=== PATIENT | female | born 1980 | race Caucasian/White ===

== ENCOUNTER → 2020-03-31 11:28 | Outpatient (CLI) | payer OTHER, SELFPAY ==
[2020-03-31 12:55] LABS: Appearance Urine UA CLEAR; Bilirubin Urine UA NEGATIVE (NEGATIVE); Color Urine UA YELLOW; Glucose Urine UA NEGATIVE (Negative); Ketones Urine UA NEGATIVE (NEGATIVE); Leukocyte Esterase Urine UA NEGATIVE (NEGATIVE); Nitrite Urine UA NEGATIVE (Negative); Occult Blood Urine UA 1+ (Negative); Protein Urine UA NEGATIVE (Negative); Specific Gravity Urine UA 1.015 (1.000-1.035); Urobilinogen Urine UA 0.2 E.U./dL (0.2)
[2020-03-31 13:22] LABS: RBC Urine 0-1/HPF (0-5/HPF); Squamous Epithelial Cell Urine 1-5 /HPF (0-5/HPF); WBC Urine 5-10/HPF (0-5/HPF)
[2020-03-31 13:23] LABS: Amorphous Sediment Urine 1+; Bacteria Urine Few (2-10); Culture Indicated Urine Specimen Cultured; Mucus Urine 1+ (Negative)
== END ==
PROVIDERS: Family Provider Family Medicine; PCP Student in an Organized Health Care Education/Training Program; Referring Provider Student in an Organized Health Care Education/Training Program; Visit Provider Student in an Organized Health Care Education/Training Program
DX: R30.0 Dysuria (principal)
CPT/HCPCS: 81001; 87077; 87086; 87186

== ENCOUNTER → 2021-03-27 15:13 | Outpatient (CLI) | payer OTHER, SELFPAY ==
[2021-03-27 16:25] LABS: Blood Urea Nitrogen 13 mg/dL (7-17); Calcium 9.6 mg/dL (8.4-10.2); Carbon Dioxide 26 mmol/L (22-32); Chloride 105 mmol/L (98-107); Estimated Glomerular Filt Rate > 60.0 mL/min (>60); Glucose 108 mg/dL (70-100); HEMOLYSIS < 15 (0-50); Sodium 138 mmol/L (137-145)
== END ==
PROVIDERS: PCP Student in an Organized Health Care Education/Training Program; Referring Provider Student in an Organized Health Care Education/Training Program; Visit Provider Student in an Organized Health Care Education/Training Program
DX: Z79.1 Long term (current) use of non-steroidal anti-inflammatories (NSAID) (principal)
CPT/HCPCS: 36415; 80048

== ENCOUNTER → 2021-06-26 11:31 | Outpatient (CLI) | payer OTHER, SELFPAY ==
[2021-06-26 13:13] LABS: COVID19 -Nasal RAPID POSITIVE (Negative)
== END ==
PROVIDERS: PCP Student in an Organized Health Care Education/Training Program; Visit Provider Physician Assistant
DX: Z20.822 Contact with and (suspected) exposure to COVID-19 (principal); R09.81 Nasal congestion; R09.89 Other specified symptoms and signs involving the circulatory and respiratory systems
CPT/HCPCS: 87635

== ENCOUNTER → 2021-07-05 08:33 | Outpatient (CLI) | payer OTHER, SELFPAY ==
[2021-07-05 13:25] LABS: COVID19 -Nasal RAPID POSITIVE (Negative)
== END ==
PROVIDERS: PCP Student in an Organized Health Care Education/Training Program; Visit Provider Nurse Practitioner Family
DX: Z20.822 Contact with and (suspected) exposure to COVID-19 (principal); R09.81 Nasal congestion
CPT/HCPCS: 87635

== ENCOUNTER 2022-12-11 12:56 | Emergency (ER) | payer OTHER, MEDICAID, SELFPAY ==
[2022-12-11 13:30] VITALS: BP 181/106; PULSE 122; RESP 18; TEMP 36.9; O2SAT 99; BMI 57.6
[2022-12-11 14:22] VITALS: BP 133/77; PULSE 120; RESP 18; O2SAT 98
[2022-12-11 14:31] VITALS: PULSE 118; RESP 20; O2SAT 96
--- NOTE | 2022-12-11 14:41 | ED.DENTAL ---
HPI - Dental/Oral <Martha Griffith PA-C - Last Filed: 12/11/22 14:50> General Chief complaint: Dental/Oral Stated complaint: L sided pain, mouth pain Time Seen by Provider: 12/11/22 14:31 Source: patient Mode of arrival: Family Vehicle History of Present Illness HPI Narrative: 42-year-old female with past medical history hyperlipidemia, lumbar disc herniation presents to the ED with 7 days of left upper dental pain. Patient endorses a subjective fever last night, intermittent nausea from the pain. Patient denies chills, chest pain, shortness of breath, vomiting, dysphagia, odynophagia. Related Data Home Medications Medication Instructions Recorded Confirmed ibuprofen 200 mg tablet (Advil) 400 mg PO Q4-6H PRN 08/13/18 05/09/22 Previous Rx's Medication Instructions Recorded cyclobenzaprine 10 mg tablet 10 mg PO TID PRN muscle spasm #30 05/09/22 tabs gabapentin 300 mg capsule 300 mg PO TID PRN Neuropathy #120 05/09/22 caps hydrocodone 5 mg-acetaminophen 325 1 tab PO Q6H PRN pain #10 tabs 05/09/22 mg tablet clindamycin HCl 150 mg capsule 450 mg PO TID 14 days #126 caps 12/11/22 epinephrine 0.3 mg/0.3 mL 0.3 mg (0.3 mL) IM Q5-15M PRN 12/11/22 injection, auto-injector (EpiPen) anaphylaxis #2 ea oxycodone-acetaminophen 5 mg-325 1 tab PO Q8H PRN pain #10 tabs 12/11/22 mg tablet (Percocet) tramadol 50 mg tablet 50 mg PO Q8H PRN pain #10 tabs 12/11/22 Allergies Allergy/AdvReac Type Severity Reaction Status Date / Time sulfamethoxazole Allergy Severe swelling Verified 12/11/22 13:40 [From ] everywhere trimethoprim [From ] Allergy Severe swelling Verified 12/11/22 13:40 everywhere amoxicillin Allergy Mild RASH Verified 12/11/22 13:40 Penicillins [PENICILLINS] Allergy Unknown Verified 12/11/22 13:40 Review of Systems <Martha Griffith PA-C - Last Filed: 12/11/22 14:50> Review of Systems ROS Unobtainable: All systems reviewed & are unremarkable except as noted in HPI and below Constitutional Constitutional: Denies chills, Denies fatigue, Denies fever(s), Denies frequent falls, Denies lethargy and Denies weakness Eyes Eyes: Denies change in vision, Denies eye discharge, Denies irritation and Denies loss of vision ENT Ears, Nose, Mouth, and Throat: Denies change in voice, Reports dental pain, Denies dizziness, Denies neck pain, Denies sore throat and Denies throat swelling Cardiovascular Cardiovascular: Denies chest pain, Denies irregular heart rhythm, Denies lightheadedness, Denies palpitations, Denies dyspnea, Denies dyspnea on exertion and Denies orthopnea Respiratory Respiratory: Denies cough, Denies dyspnea, Denies dyspnea on exertion and Denies wheezing Gastrointestinal Gastrointestinal: Denies abdominal pain, Denies change in bowel habits, Denies diarrhea, Denies nausea and Denies vomiting Genitourinary Genitourinary: Denies hematuria, Denies flank pain, Denies urinary incontinence and Denies urinary urgency Musculoskeletal Musculoskeletal: Denies back pain, Denies muscle weakness, Denies neck pain, Denies numbness and Denies tingling Integumentary/Breasts Skin/Breast: Denies pruritus, Denies erythema, Denies rash and Denies wounds Neurologic Neurologic: Denies behavioral changes, Denies confusion, Denies dizziness, Denies frequent falls, Denies loss of vision, Denies numbness, Denies tingling and Denies weakness Psychiatric Psychiatric: Denies anxiety, Denies behavioral changes, Denies confusion, Denies depression, Denies homicidal ideation and Denies suicidal ideation Endocrine Endocrine: Denies fatigue, Denies flushing and Denies palpitations Hematologic/Lymphatic Hematologic/Lymphatic: Denies easy bruising Allergic/Immunologic Allergic/Immunologic: Denies urticaria, Denies throat swelling and Denies wheezing Patient History <Martha Griffith PA-C - Last Filed: 12/11/22 14:50> Medical History Chicken pox (~1991) COVID-19 Kidney stones (~2007) Ovarian cyst (~2005) Shingles (~2013) Spine disorder (~2013) Surgical History Anesthesia Status post tonsillectomy and adenoidectomy (~1991) Family History Grandfather Age: 85 Diabetes mellitus Grandfather Cancer Social History Smoking Status: Current every day smoker quit status: considering quitting alcohol intake: never substance use type: marijuana (occasionally) Smoking Status: Current every day smoker tobacco type: cigarettes Substance Use Type: does not use Exam <Martha Griffith PA-C - Last Filed: 12/11/22 14:50> Narrative Exam Narrative: Const General:?cooperative, healthy appearing and comfortable HENMO Head:?normal to inspection Ears:?hearing grossly normal bilaterally Nose:?external nose normal Face and sinus:?normal facial exam and sinuses nontender Mouth:?oral mucosae normal; tenderness to palpation of the gum region above left upper molar; no discharge Throat:?posterior oropharynx normal Eyes General:?appearance normal, both eyes and all related structures Neck Neck:?normal visual inspection and no lymphadenopathy noted Resp Effort & Inspection:?normal respiratory effort Auscultation:?clear to auscultation bilaterally Cardio Rate:?regular rate Rhythm:?regular rhythm Neuro General:?patient alert, patient awake and patient oriented x3 Initial Vital Signs Initial Vital Signs: Vital Signs Temperature 98.5 F 12/11/22 13:30 Pulse Rate 122 H 12/11/22 13:30 Respiratory Rate 18 12/11/22 13:30 Blood Pressure 181/106 H 12/11/22 13:30 Pulse Oximetry 99 12/11/22 13:30 Oxygen Delivery Method Room Air 12/11/22 13:30 <Kenia Nieves DO - Last Filed: 12/17/22 09:21> Initial Vital Signs Initial Vital Signs: Vital Signs Temperature 98.5 F 12/11/22 13:30 Pulse Rate 122 H 12/11/22 13:30 Respiratory Rate 18 12/11/22 13:30 Blood Pressure 181/106 H 12/11/22 13:30 Pulse Oximetry 99 12/11/22 13:30 Oxygen Delivery Method Room Air 12/11/22 13:30 Course <Martha Griffith PA-C - Last Filed: 12/11/22 14:50> Vital Signs Vital signs: Vital Signs - 8 hr 12/11/22 13:30 12/11/22 14:22 12/11/22 14:31 Temperature 98.5 F Pulse Rate 122 H 120 H 118 H Respiratory Rate 18 18 20 Blood Pressure 181/106 H 133/77 Pulse Oximetry 99 98 96 Oxygen Delivery Method Room Air Room Air Room Air 12/11/22 14:43 Temperature Pulse Rate 111 H Respiratory Rate 18 Blood Pressure Pulse Oximetry 96 Oxygen Delivery Method Room Air <Kenia Nieves DO - Last Filed: 12/17/22 09:21> Vital Signs Vital signs: Vital Signs - 8 hr 12/11/22 13:30 12/11/22 14:22 12/11/22 14:31 Temperature 98.5 F Pulse Rate 122 H 120 H 118 H Respiratory Rate 18 18 20 Blood Pressure 181/106 H 133/77 Pulse Oximetry 99 98 96 Oxygen Delivery Method Room Air Room Air Room Air 12/11/22 14:43 Temperature Pulse Rate 111 H Respiratory Rate 18 Blood Pressure Pulse Oximetry 96 Oxygen Delivery Method Room Air MDM - Dental/Oral <Martha Griffith PA-C - Last Filed: 12/11/22 14:50> MDM Narrative Medical decision making narrative: 42-year-old female with past medical history hyperlipidemia, lumbar disc herniation presents to the ED with 7 days of left upper dental pain. Concern for dental abscess versus cracked tooth versus loose dental filling versus other. Patient is very tender to palpation in the gum region right above the left upper molar. No discharge noted on exam. Will start patient on antibiotics, pain control. Recommend follow-up with dentist as soon as possible for further evaluation treatment. Patient has anaphylactic reactions to several antibiotics, so will also prescribe EpiPen in case of adverse reaction to the medications she is prescribed today. Patient is known to tolerate azithromycin, hence clindamycin was chosen. ED return precautions were discussed with patient. Patient verbalized understanding. Medical records reviewed: Yes Discharge Plan Departure Patient Disposition: Home Clinical Impression: Pain, dental Instructions: DI for Dental Pain Activity Restrictions/Additional Instructions: You were evaluated in the ED today for dental pain. Your dental pain could be caused by either a abscess or a cracked tooth. You are being prescribed antibiotics and pain medication until you are able to see a dentist. It is important to see a dentist as soon as possible for further evaluation and treatment. Given that you have had anaphylactic reactions to several antibiotics, you were also being prescribed a EpiPen to use in case of any anaphylactic reactions to medications. Return to the ED if you have an anaphylactic reaction, trouble swallowing, shortness of breath, chest pain. Prescriptions: New tramadol 50 mg tablet 50 mg PO Q8H PRN (Reason: pain) Qty: 10 0RF clindamycin HCl 150 mg capsule 450 mg PO TID 14 Days Qty: 126 0RF epinephrine [EpiPen] 0.3 mg/0.3 mL auto-injector 0.3 mg IM Q5-15M PRN (Reason: anaphylaxis) Qty: 2 0RF Rx Instructions: do not exceed 3 doses per episode oxycodone-acetaminophen [Percocet] 5-325 mg tablet 1 tab PO Q8H PRN (Reason: pain) Qty: 10 0RF No Action ibuprofen [Advil] 200 mg tablet 400 mg PO Q4-6H PRN gabapentin 300 mg capsule 300 mg PO TID PRN (Reason: Neuropathy) Qty: 120 5RF Rx Instructions: 300mg in the AM and afternoon, 600mg at night. cyclobenzaprine 10 mg tablet 10 mg PO TID PRN (Reason: muscle spasm) Qty: 30 5RF hydrocodone-acetaminophen 5-325 mg tablet 1 tab PO Q6H PRN (Reason: pain) Qty: 10 0RF Rx Instructions: Exempt; Must last 30 days Referrals: Da Muñoz MD [Primary Care Provider] - Stand Alone Forms: Patient Portal/API <Kenia Nieves DO - Last Filed: 12/17/22 09:21> Cosign ED Attending Gerhard Attestation: I was immediately available in the department for consultation. Documentation has been reviewed.
[2022-12-11 14:43] VITALS: PULSE 111; RESP 18; O2SAT 96
[2022-12-11 14:53] VITALS: PULSE 111
== END 2022-12-11 14:53 | disposition home or self-care (01) ==
PROVIDERS: Emergency Provider Student in an Organized Health Care Education/Training Program; PCP Pediatrics
DX: K08.89 Other specified disorders of teeth and supporting structures (principal)
CPT/HCPCS: 99281

== ENCOUNTER → 2023-12-10 14:20 | Outpatient (CLI) | payer OTHER, MEDICAID, SELFPAY ==
[2023-12-10 15:03] LABS: Ur Creatinine Normal (Normal); Ur Specific Gravity Normal (Normal); Urine THC Negative (Negative); Urine pH Normal (Normal)
[2023-12-10 15:04] LABS: Urine Amphetamines Negative (Negative); Urine Barbiturates Negative (Negative); Urine Benzodiazepines Negative (Negative); Urine Cocaine Negative (Negative); Urine MDMA Negative (Negative); Urine Methadone Negative (Negative); Urine Methamphetamines Negative (Negative); Urine Opiates Negative (Negative); Urine Oxycodone Negative (Negative); Urine Phencyclidine Negative (Negative); Urine Tricyclic Antidepressant Positive (Negative)
[2023-12-10 15:09] LABS: Add Manual Diff / Slide Review NO; Basophils Absolute Auto 100 /uL (0-100); Basophils Percent Auto 0.8 % (0-2); Eosinophils Absolute Auto 400 /uL (0-450); Eosinophils Percent Auto 3.5 % (2-4); Hematocrit 40.9 % (36-46); Hemoglobin 13.7 g/dL (12.0-16.0); Lymphocytes Absolute Auto 2500 /uL (1100-4500); Lymphocytes Percent Auto 22.7 % (25-40); Mean Corpuscular HGB Conc 33.5 % (30-36); Mean Corpuscular Hemoglobin 27.5 PG (26-34); Monocytes Absolute Auto 500 /uL (0-900); Monocytes Percent Auto 4.2 % (3-14); Neutrophils Absolute Auto 7500 /uL (1500-7000); Neutrophils Percent Auto 68.8 % (50-75); Platelet Count 349 X10^3/uL (150-400); Red Blood Cell Count 4.98 X10^6/uL (4.0-5.2); Red Cell Distribution Width 14.1 % (11.6-14.8); White Blood Cell Count 10.9 X10^3/uL (4.5-11.0)
[2023-12-10 15:21] LABS: Hemoglobin A1C% w Est Avg Glu 5.5 % (4.0-6.0)
[2023-12-10 15:30] LABS: Alanine Aminotransferase 64 IU/L (<35); Albumin 4.4 g/dL (3.5-5.0); Albumin Globulin Ratio 1.6 (1.0-2.8); Alkaline Phosphatase 109 U/L (38-126); Aspartate Aminotransferase 62 IU/L (14-36); BUN Creatinine Ratio 15.8 (6-22); Bilirubin Total 1.2 mg/dL (0.2-1.3); Blood Urea Nitrogen 12 mg/dL (7-17); Calcium 9.2 mg/dL (8.4-10.2); Carbon Dioxide 27 mmol/L (22-32); Chloride 105 mmol/L (98-107); Cholesterol 246 mg/dL (140-199); Estimated Glomerular Filt Rate > 60 mL/min (>60); Globulin 2.8 g/dL (1.7-4.1); Glucose 109 mg/dL (70-100); HDL Cholesterol 53 mg/dL (40-60); HEMOLYSIS < 15 (0-50); LDL Cholesterol Calculated 166 mg/dL (<100); Potassium 4.4 mmol/L (3.4-5.1); Sodium 139 mmol/L (137-145); Total Protein 7.2 g/dL (6.3-8.2); Triglycerides 133 mg/dL (35-150)
== END ==
PROVIDERS: PCP Family Medicine; Referring Provider Family Medicine; Visit Provider Family Medicine
DX: Z79.1 Long term (current) use of non-steroidal anti-inflammatories (NSAID) (principal); F11.20 Opioid dependence, uncomplicated; F17.200 Nicotine dependence, unspecified, uncomplicated; E66.01 Morbid (severe) obesity due to excess calories; E78.5 Hyperlipidemia, unspecified; M51.16 Intervertebral disc disorders with radiculopathy, lumbar region
CPT/HCPCS: 36415; 80053; 80061; 80305; 83036; 85025

== ENCOUNTER → 2024-01-29 11:16 | Outpatient (CLI) | payer OTHER, MEDICAID, SELFPAY ==
[2024-01-29 13:09] LABS: TSH w/ Reflex to FT4 1.65 uIU/mL (0.47-4.68)
== END ==
PROVIDERS: PCP Family Medicine; Referring Provider Family Medicine; Visit Provider Family Medicine
DX: E66.01 Morbid (severe) obesity due to excess calories (principal); Z68.43 Body mass index [BMI] 50.0-59.9, adult; E78.5 Hyperlipidemia, unspecified
CPT/HCPCS: 36415; 84443

== ENCOUNTER → 2025-06-24 14:07 | Outpatient (CLI) | payer OTHER, SELFPAY ==
--- NOTE | 2025-06-24 14:12 | DI.RAD.S_ITS ---
PROCEDURE: XR LUMBAR SPINE MIN 4V INDICATIONS: chronic pain TECHNIQUE: 5 views of the lumbar spine acquired, including flexion and extension views. COMPARISON: None. FINDINGS: Bones: 5 nonrib-bearing vertebrae are present. There is very mild rightward curvature of lumbar spine with apex at L2 level. No vertebral body compression fractures. Mild degenerative endplate changes are noted at L3-4 through L5-S1 levels. No suspicious bony lesions. Soft tissues: Overlying bowel gas pattern is normal. No suspicious soft tissue calcifications. Flexion/extension: There is normal range of motion, with preserved normal alignment. IMPRESSION: No acute compression fracture or spondylolisthesis. Mild degenerative disc disease in lower lumbar spine. Very mild rightward curvature of lumbar spine as above. Normal range of motion on lateral flexion and extension views with preserved lumbar spine alignment. Dictated by: Dandre Smallwood M.D. on 06/25/2025 at 10:18 Approved by: Dandre Smallwood M.D. on 06/25/2025 at 10:19
--- NOTE | 2025-06-24 14:12 | DI.RAD.S_ITS ---
PROCEDURE: XR CERVICAL SPINE 4V OR 5V INDICATIONS: chronic pain TECHNIQUE: 5 views of the cervical spine were acquired. COMPARISON: None. FINDINGS: Bones: No fractures or dislocations to the T1 level. There is straightening of normal cervical lordosis. Loss of disc height, degenerative endplate changes and mild bilateral facet hypertrophic changes are noted at C4-5, C5-6 and C6-7 levels. No suspicious bony lesions. There is decreased range of motion between flexion and extension, with preserved cervical spine alignment. Soft tissues: Prevertebral soft tissues are normal in thickness. IMPRESSION: [id number] degenerative disc disease in mid to lower cervical spine. No acute fracture or dislocation. Decreased range of motion on lateral flexion and extension views with preserved cervical spine alignment. Dictated by: Dandre Smallwood M.D. on 06/25/2025 at 10:25 Approved by: Dandre Smallwood M.D. on 06/25/2025 at 10:28
== END ==
LOC: RAD 14:11
PROVIDERS: PCP Family Medicine; Referring Provider Physical Medicine & Rehabilitation; Visit Provider Physical Medicine & Rehabilitation
DX: M51.369 Other intervertebral disc degeneration, lumbar region without mention of lumbar back pain or lower extremity pain (principal); M50.321 Other cervical disc degeneration at C4-C5 level; G89.29 Other chronic pain
CPT/HCPCS: 72050; 72110